=== PATIENT | male | born 1945 | race Caucasian/White ===

== ENCOUNTER 2020-08-23 22:49 | Inpatient (IN) | payer OTHER ==
[~2020-08-23] VITALS: Ht 172.7 cm; Wt 75.2 kg
[2020-08-23 23:31] LABS: MEAN CELL VOLUME 91.7 fl (80.0-94.0); MEAN CORPUSCULAR HGB CONC 32.7 g/dl (33.0-37.0); MEAN PLATELET VOLUME 11.3 fl (9.6-12.3); PLATELET COUNT AUTOMATED 226 10*3/uL (130-400); RED BLOOD COUNT 4.47 10*6/uL (4.50-5.90); RED CELL DISTRI WIDTH 12.9 % (0-14.5); WHITE BLOOD COUNT 14.3 10*3/uL (4.8-10.8)
--- NOTE | 2020-08-23 23:40 | NUR ---
PT REPORTED TO ED VIA EMS WITH C/O NOT FEELING WELL, DIZZY AND STATES HE HAD A UTI A FEW WEEKS AGO HE DID NOT TAKE THE ANTIBIOTICS FOR. PT PLACED IN ROOM 7, GOWNED AND PT HAS IV THAT WAS PLACED BY EMS BEFORE ARRIVAL. DR GODDARD WILL SEE PT. POC EXPLAIEND. PT V/U. NS 100OML STARTED AT THIS TIME AT 100ML/HR. NO INFILTRATION, SWELLING SEEN. WILL CONTINUE TO MONITOR.
[2020-08-23 23:41] LABS: ACT PARTIAL THROMBO TIME 26.2 SECONDS (20.0-32.1); INTERNATIONAL NORM RATIO 1.1 (2.0-3.5)
[2020-08-23 23:46] LABS: ALBUMIN 3.4 gm/dl (3.1-4.5); ALKALINE PHOSPHATASE 87 U/L (45-117); BUN 13 mg/dl (7-24); CHLORIDE 108 mmol/L (98-107); CREATININE 0.86 mg/dL (0.70-1.30); LIPASE 107 U/L (73-393); POTASSIUM 3.2 mmol/L (3.5-5.1); SGOT/AST 12 IU/L (3-35); SGPT/ALT 16 U/L (12-78); SODIUM 139 mmol/L (136-145); TOTAL PROTEIN 6.7 gm/dL (6.4-8.2)
[2020-08-23 23:48] LABS: PLATELET SUFFICIENCY NORMAL (NORMAL); TOTAL CELLS COUNTED 100 #CELLS
--- NOTE | 2020-08-24 00:12 | NUR ---
pt sleeping. easy and unlabored resp. nad. will continue
--- NOTE | 2020-08-24 00:40 | NUR ---
RT AT BEDSIDE. EKG PERFORMED.
--- NOTE | 2020-08-24 00:44 | NUR ---
PT UP TO BR AMBULATORY WITH NURSE AT SIDE. PT VOIDED WITHOUT DIFFUCULTY. PT BACK TO ROOM.
--- NOTE | 2020-08-24 01:30 | NUR ---
PT GOWNED AND UNIBOOTS REMOVED BY NURSE. WARM BLANKETS GIVEN TO PT PER REQEU. NEW IV FLUIDS HUNG AT 100ML/HR. NO INFILTRATION SEEN. FLUSHES EASILY. NAD. NO NEEDS OR CONCERNS VOICED. WILL CONTINUE TO MONITOR.
--- NOTE | 2020-08-24 01:55 | NUR ---
PT GIVEN URINAL TO COLLECT URINE FOR LAB AND WARM BLANKETS. NAD
[2020-08-24 02:02] VITALS: BP 115/57
--- NOTE | 2020-08-24 03:26 | NUR ---
PT SLEEPING. EASY AND UNLABORED RESP OBSERVED. NAD. WILL CONTINUE TO MONITOR.
--- NOTE | 2020-08-24 03:35 | NUR ---
PT SITTING UP ON EDGE OF BED USING URINAL. UA COLLECTED BY NURSE AND SENT TO LAB. DR GODDARD AT BEDSIDE POC EXPLAINED TO PT BY MD. PT V/U. WILL CONTINUE TO MONITOR.
[2020-08-24 03:59] LABS: BILIRUBIN Negative (Negative); BLOOD Negative (Negative); CLARITY Clear (Clear); COLOR Yellow (Yellow); GLUCOSE Negative (Negative); KETONE Negative (Negative); LEUKO ESTERASE 2+ (Negative); NITRITE Negative (Negative); PH 6.5 (4.5-8.0); SPECIFIC GRAVITY 1.025 (1.001-1.030)
[2020-08-24 04:11] LABS: BACTERIA 2+; WBC 31-40 wbc/hpf (0-5)
--- NOTE | 2020-08-24 04:50 | NUR ---
R[place]HE[place] 1GM IVP GIVEN OVER 5 MINS. NO INFILTRATION, SWELLING, OR BRUISING NOTED. PT TOLERATED WELL
--- NOTE | 2020-08-24 05:25 | NUR ---
RECTAL TEMP TAKEN BY NURSE PER MD ORDER DUE TO PT SHIVERING STILL. TEMP 101.0. RN NOTIFIED DR GODDARD OF TEMP. NO NEW ORDERS RECEIVED
--- NOTE | 2020-08-24 06:26 | NUR ---
PT UP TO BEDSIDE TO VOID. PT C/O BEING COLD, SHIVERING SEEN. PT GIVEN WARM BLANKETS. NAD. WILL CONTINUE TO MONITOR.
[2020-08-24 06:39] LABS: HEMATOCRIT 43.6 % (42.0-52.0); MEAN CORPUSCULAR HGB CONC 32.6 g/dl (33.0-37.0); PLATELET COUNT AUTOMATED 232 10*3/uL (130-400); RED BLOOD COUNT 4.74 10*6/uL (4.50-5.90); RED CELL DISTRI WIDTH 12.9 % (0-14.5); WHITE BLOOD COUNT 15.7 10*3/uL (4.8-10.8)
[2020-08-24 06:48] LABS: BUN 10 mg/dl (7-24); CHLORIDE 108 mmol/L (98-107); CREATININE 0.74 mg/dL (0.70-1.30); POTASSIUM 3.5 mmol/L (3.5-5.1); SODIUM 141 mmol/L (136-145)
[2020-08-24 07:04] LABS: ATYPICAL LYMPHS 1 % (0-0); PLATELET SUFFICIENCY NORMAL (NORMAL); TOTAL CELLS COUNTED 100 #CELLS
[2020-08-24 08:58] VITALS: BP 124/60
--- NOTE | 2020-08-24 09:35 | NUR ---
0940: Pt wants to sign out AMA. Says he will f/u w/his doctor. Says his dog was put to sleep last night. saw pt at bedside and is awatre that CT has not been done.
[2020-08-24 09:53] VITALS: BP 140/60
--- NOTE | 2020-08-24 09:59 | NUR ---
Previously charted as incorrectly as AMA. Wrong pt.
--- NOTE | 2020-08-24 10:59 | NUR ---
1000: Lovenox 40 mg per Orders. 1100 Reasssesed. No change.Carries on conversation/pleasant.
[2020-08-24 12:11] VITALS: BP 128/78
[2020-08-24 14:00] VITALS: BP 168/68
[2020-08-24] MEDS ORDERED: KEFLEX500 M1 PO (14:53)
--- NOTE | 2020-08-24 15:24 | NUR ---
PT ADMITTED TO 4 E FOR UTI AND SEPSIS. PTIS ALERT AND ORIENTED, VERY WEEK, UNABLE TO SIT ON THE SIDE OF THE BED. HE IS ABLE TO AMBULATE TO THE BED FROM THE WHEELCHAIR. SKIN IS INTACT. HAS HAD BOTH FLU AND PNA VACCINES PRIOR TO ADMISSION. LEFT ANKLE IS SWOLLEN. REG DIET AT HOME. HE HAS BEEN TALKING ON [facility] PHONE TO HIS SO.
--- NOTE | 2020-08-24 15:27 | NUR ---
PATIENT DENIES WOUNDS AT TIME OF ASSESSMENT.
--- NOTE | 2020-08-24 17:41 | NUR ---
DR MERINO NOTIFIED ABOUT POSITIVE BLOOD CULTURES. NO NEW ORDERS
--- NOTE | 2020-08-24 18:50 | NUR ---
PT HAS URINARY URGENCY, PT IS INCONTINENT OF URINE. WHEN HE VOID HE VOIDS 25 ML AT A TIME ABOUT EVERY 15 MIN. BLADDER SCANN WAS COMPLETED AND RESULT AFTER VOIDING WAS 15 ML.
[2020-08-24 20:00] VITALS: BP 147/60
[2020-08-25] VITALS: BP 135/55
[2020-08-25 06:27] LABS: BUN 13 mg/dl (7-24); CHLORIDE 104 mmol/L (98-107); CREATININE 0.79 mg/dL (0.70-1.30); POTASSIUM 3.1 mmol/L (3.5-5.1); SODIUM 138 mmol/L (136-145)
[2020-08-25 06:36] LABS: BASO % 0.2 % (0.0-1.0); EOS % 0.2 % (1.0-4.0); HEMATOCRIT 39.6 % (42.0-52.0); LYMPH # 0.9 10*3/uL (1.3-4.4); LYMPH % 7.1 % (27.0-41.0); MEAN CORPUSCULAR HGB 30.6 pg (27.0-31.0); MEAN CORPUSCULAR HGB CONC 33.6 g/dl (33.0-37.0); MONO # 0.8 10*3/uL (0.1-1.0); MONO % 6.3 % (3.0-9.0); NEUT # 10.8 10*3/uL (2.3-7.9); NEUT % 85.7 % (47.0-73.0); PLATELET COUNT AUTOMATED 200 10*3/uL (130-400); RED BLOOD COUNT 4.35 10*6/uL (4.50-5.90); RED CELL DISTRI WIDTH 12.6 % (0-14.5); WHITE BLOOD COUNT 12.6 10*3/uL (4.8-10.8)
[2020-08-25 08:00] VITALS: BP 112/79
--- NOTE | 2020-08-25 08:04 | NUR ---
PHYSICAL THERAPY Screen received pt admitted with UTI and Sepsis please consult therapy if pt has a decline in functional status below baseline thank you Viji Mayfield PT
--- NOTE | 2020-08-25 09:00 | NUR ---
Adaptive Physical Education Specialist in to talk to patient. Patient states lives at home with alone. There are no steps in the home. Physician: none [facility]acy[facility] Home health services: none Patient's level of ADLs: INDEPENDENT Patient has working utilities: all working DME: none Follow-up physician's appointment after d/c: will be made by hospitalist nurse director upon discahrge Does patient want to access PORTAL?: no Discharge plan discussed with patient, he states he lives at home, is independent in adls and ambulation, he states he will return home when discharged and denies any home needs, case management will follow. JACKELIN ENGLISH
[2020-08-25 12:00] VITALS: BP 137/53
--- NOTE | 2020-08-25 12:44 | NUR ---
NOTIFIED 'S ANSWERING SERVICE OF CONSULT.
[2020-08-25 16:00] VITALS: BP 124/51
[2020-08-25 20:00] VITALS: BP 124/52
--- NOTE | 2020-08-25 20:55 | NUR ---
PT SITTING UP IN RECLINER CHAIR. RESP-EASY AND REGULAR. NO C/O AT THIS TIME. CALL LIGHT IN REACH. WILL CON'T TO MONITOR.
--- NOTE | 2020-08-25 23:00 | NUR ---
PT RESTING IN BED. NO C/O AT THIS TIME. CALL LIGHT IN REACH.
[2020-08-26] VITALS: BP 149/68
--- NOTE | 2020-08-26 00:25 | NUR ---
PT RESTING IN RECLINER CHAIR. RESP-EASY AND REGULAR. NO C/O AT THIS TIME. CALL LIGHT IN REACH. SEE SHIFT ASSESSMENT.
--- NOTE | 2020-08-26 04:30 | NUR ---
PT TOLERATED ROUTINE MED WITH NO PROBLEM. CALL LIGHT IN REACH.
[2020-08-26 06:56] LABS: BASO % 0.3 % (0.0-1.0); EOS # 0.2 10*3/uL (0.0-0.4); EOS % 2.4 % (1.0-4.0); HEMATOCRIT 40.6 % (42.0-52.0); LYMPH # 0.9 10*3/uL (1.3-4.4); LYMPH % 13.6 % (27.0-41.0); MEAN CELL VOLUME 89.2 fl (80.0-94.0); MEAN CORPUSCULAR HGB 29.5 pg (27.0-31.0); MEAN PLATELET VOLUME 11.9 fl (9.6-12.3); MONO # 0.7 10*3/uL (0.1-1.0); MONO % 10.1 % (3.0-9.0); NEUT # 4.8 10*3/uL (2.3-7.9); NEUT % 73.3 % (47.0-73.0); PLATELET COUNT AUTOMATED 218 10*3/uL (130-400); RED BLOOD COUNT 4.55 10*6/uL (4.50-5.90); RED CELL DISTRI WIDTH 12.5 % (0-14.5); WHITE BLOOD COUNT 6.6 10*3/uL (4.8-10.8)
[2020-08-26 07:24] LABS: BUN 13 mg/dl (7-24); CHLORIDE 105 mmol/L (98-107); CREATININE 0.74 mg/dL (0.70-1.30); POTASSIUM 3.4 mmol/L (3.5-5.1); SODIUM 137 mmol/L (136-145)
[2020-08-26 08:00] VITALS: BP 140/62
--- NOTE | 2020-08-26 08:34 | NUR ---
Attempted to reach Dr. Sevilla regarding + BC and UC results. Called office and was on hold with no answer. I called answering service and they stated that office staff should be there to try again. I tried to call again and was on hold with no answer. Will attempt again later.
--- NOTE | 2020-08-26 09:00 | NUR ---
case management visits with patient, discussed with him a discharge plan. he stated he would return home when discharged. 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
[2020-08-26 12:00] VITALS: BP 134/65
[2020-08-26 16:40] VITALS: BP 150/68
[2020-08-26] MEDS ORDERED: HYDR12.5C PO (16:56)
[2020-08-26] MEDS ORDERED: Synthroid,Levo50 MCG PO (16:56)
[2020-08-26] MEDS ORDERED: LEVOFLOXACIN750 M2 PO (16:57)
--- NOTE | 2020-08-26 18:35 | NUR ---
Notified pt of order for discharge. Pt states he is going to get a hold of his girlfriend to pick him up.
--- NOTE | 2020-08-26 19:00 | NUR ---
Discharge instructions reviewed with patient. Patient receptive and verbalizes understanding. Follow-up care arranged. Written instructions given to patient. Pt is calling his girlfriend to pick him up. States he does not have his shoes cannot find them. States he had black tennis shoes when he came in to this facility. No clothing list in chart. CHERY WILLARD
--- NOTE | 2020-08-26 19:47 | NUR ---
PT ESCORTED VIA WHEELCHAIR FOR DISCHARGE. PT STATES HE HAD STEEL TOE SHOES. WE SEARCH PT ROOM WITH NO LUCK. MADE COMPUTER TECH AWARE AND CALLED ER TO HAVE THEM LOOK. FILLED OUT A MISSING ITEM PAPER.
== END 2020-08-26 19:50 | disposition home or self-care (01) | DRG 872 ==
LOC: ED 22:49 → 4E 08-24 05:05 → EDHOLD 08-24 05:05 → 4E 08-24 13:12
PROVIDERS: Hospitalist; Internal Medicine; Nurse Practitioner Family; Student in an Organized Health Care Education/Training Program; ADMIT Student in an Organized Health Care Education/Training Program; ATTEND Student in an Organized Health Care Education/Training Program
DX: A41.59 Other Gram-negative sepsis (principal); N39.0 Urinary tract infection, site not specified; R65.20 Severe sepsis without septic shock; E87.6 Hypokalemia; R73.9 Hyperglycemia, unspecified; D64.9 Anemia, unspecified; E03.9 Hypothyroidism, unspecified; R91.1 Solitary pulmonary nodule; J43.9 Emphysema, unspecified; K44.9 Diaphragmatic hernia without obstruction or gangrene; F17.220 Nicotine dependence, chewing tobacco, uncomplicated; I10 Essential (primary) hypertension; E55.9 Vitamin D deficiency, unspecified; E87.8 Other disorders of electrolyte and fluid balance, not elsewhere classified; Z82.49 Family history of ischemic heart disease and other diseases of the circulatory system; Z71.6 Tobacco abuse counseling